=== PATIENT | male | born 1970 | race African-American/Black ===

== ENCOUNTER 2021-11-12 11:36 | Emergency (ER) | payer SELFPAY ==
[2021-11-12] MEDS ORDERED: Ibuprofen 600 MG Tab PO ONE (12:54)
== END 2021-11-12 13:48 | disposition home or self-care (01) ==
LOC: MW.ED 11:36
DX: S09.90XA Unspecified injury of head, initial encounter (principal); I10 Essential (primary) hypertension; W01.0XXA Fall on same level from slipping, tripping and stumbling without subsequent striking against object, initial encounter
CPT/HCPCS: 70450; 99283; A9270